=== PATIENT | male | born 1995 | race Two or more races ===

== ENCOUNTER 2022-07-17 01:00 | Inpatient (IN) | payer OTHER ==
[~2022-07-17] VITALS: Ht 182.9 cm; Wt 65.8 kg
[2022-07-17] VITALS (17 sets, daily range): BP systolic 105–129; BP diastolic 58–90
--- NOTE | 2022-07-17 01:21 | NUR ---
TO LOBBY A/W BED AMBULATORY
--- NOTE | 2022-07-17 02:32 | NUR ---
PT TO BED #2
--- NOTE | 2022-07-17 02:50 | NUR ---
PT C/O BODY ACHES AND BURNING SENSATION WHEN URINATING THAT STARTED 2 DAYS AGO. PT ALSO STATES HE VOMITTED IN THE ER RESTROOM. PT HAS MEDICAL HISTORY DM TYPE 1. DENIES CHEST PAIN. NO OTHER COMPLAINTS AT THIS TIME.
[2022-07-17] MEDS ORDERED: NACL 0.9% 1,000 ML IV ONE (03:15)
[2022-07-17 03:30] LABS: APPEARANCE,URINE CLEAR (CLEAR); BILIRUBIN,URINE NEGATIVE (NEGATIVE); BLOOD, URINE TRACE-I (NEGATIVE); COLOR,URINE YELLOW (YELLOW); LEUKOCYTE ESTERASE ,URINE NEGATIVE (NEGATIVE); NITRITE, URINE NEGATIVE (NEGATIVE); PH,URINE 5.5 (5.0-9.0); UGLUCOSE 2+ (NEGATIVE)
[2022-07-17 03:32] LABS: BASOPHILS % (AUTO) 0.5 % (0.0-2.0); HEMATOCRIT 49.2 % (36-52); LYMPHOCYTES # (AUTO) 0.8 K/uL (2.0-11.5); LYMPHOCYTES % (AUTO) 8.2 % (20.5-51.1); MEAN CORPUSCULAR HEMOGLOBIN 30 pg (27-31); MEAN CORPUSCULAR HGB CONC 33 g/dL (33-37); MEAN CORPUSCULAR VOLUME 91.1 fL (80-94); MONOCYTES # (AUTO) 0.9 K/uL (0.8-1.0); MONOCYTES % (AUTO) 8.9 % (1.7-9.3); NEUTROPHILS # (AUTO) 8.3 K/uL (1.8-7.7); NEUTROPHILS % (AUTO) 82.4 % (42.2-75.2); PLATELET COUNT (AUTO) 214 K/uL (140-450); RED BLOOD CELL COUNT(AUTO) 5.39 MIL/uL (4.20-6.10)
[2022-07-17 03:37] LABS: RBC,URINE 0-5 /HPF (0-5)
[2022-07-17 03:38] LABS: WBC,URINE 0-5 /HPF (0-5)
[2022-07-17 03:45] LABS: ALBUMIN 4.2 g/dL (3.4-5.0); ANION GAP 32.3 (8-16); ASPARTATE AMINOTRANSFERASE 23 U/L (15-37); CARBON DIOXIDE 14.9 mmol/L (21-32); CHLORIDE 95 mmol/L (98-107); CREATININE 1.7 mg/dL (0.6-1.3); GFR ARICAN-AMERICAN 63 mL/min (>90); GLUCOSE 341 mg/dL (74-106); POTASSIUM 5.2 mmol/L (3.5-5.1); SODIUM SERUM 137 mmol/L (136-145); TOTAL BILIRUBIN 0.4 mg/dL (0.0-1.0); UREA NITROGEN, BLOOD 31 mg/dL (7-18)
[2022-07-17 03:49] LABS: ACETONE, SERUM MODERATE (NEGATIVE)
[2022-07-17] MEDS ORDERED: KETOROLAC 30 MG/ML VIAL IVP ONE (03:50)
[2022-07-17] MEDS ORDERED: INSULIN REGULAR, HUMAN 100 UNIT in NACL 0.9% 100 ML IV ONE ×2 (03:55)
[2022-07-17] MEDS ORDERED: cefTRIAXone 1,000 MG VIAL ONE (04:03)
[2022-07-17] MEDS ORDERED: ACETAMINOPHEN 325 MG TAB PO PRN (05:40)
[2022-07-17] MEDS ORDERED: NACL 0.9% 1,000 ML IV SCH (05:40)
[2022-07-17] MEDS ORDERED: ONDANSETRON 4 MG/2 ML VIAL IVP PRN (05:40)
[2022-07-17] MEDS ORDERED: MORPHINE SULFATE 2 MG/ML SYR IVP PRN (05:40)
--- NOTE | 2022-07-17 05:40 | NUR ---
ROCEPHIN IVF NOT GIVEN. MEDICINE WAS JUST ADMINISTERED 2 HRS AGO.
[2022-07-17] MEDS ORDERED: LANTUS SUBQ (06:13)
[2022-07-17] MEDS ORDERED: METF-350 PO (06:13)
--- NOTE | 2022-07-17 06:38 | NUR ---
lab called. pt positive for covid.
[2022-07-17] MEDS ORDERED: INSULIN REGULAR, HUMAN 100 UNIT in NACL 0.9% 100 ML IV SCH ×4 (08:45→08:50)
[2022-07-17] MEDS: DEXT 5% / NACL 0.45% 1,000 ML IV SCH ×3 (08:50→18:55)
[2022-07-17] MEDS ORDERED: DEXTROSE 50% 50 ML SYR IVP PRN (08:50)
[2022-07-17] MEDS: BLOOD GLUCOSE MONITORING 1 DEV DEV FS SCH ×15 (09:03→23:45)
[2022-07-17] MEDS: NACL 0.9% 1,000 ML IV SCH ×3 (09:03→18:55)
[2022-07-17 09:20] LABS: ANION GAP 25.7 (8-16); CARBON DIOXIDE 14.8 mmol/L (21-32); CREATININE 1.6 mg/dL (0.6-1.3); POTASSIUM 4.5 mmol/L (3.5-5.1)
[2022-07-17 09:24] LABS: MAGNESIUM 2.3 mg/dL (1.8-2.4); PHOSPHORUS 4.6 mg/dL (2.5-4.9)
--- NOTE | 2022-07-17 10:20 | NUR ---
PATIENT HAS BEEN SCREENED AND CATEGORIZED HIGH NUTRITION RISK. PATIENT WILL BE SEEN WITHIN 1-2 DAYS OF ADMISSION. 07/17/22-07/19/[address] REVIEWED BY BRIGHT VEL[address] RD
--- NOTE | 2022-07-17 11:27 | NUR ---
POTENTIAL COVID RELATED SKIN FAILURE DUE TO TISSUE LESS TOLERATE TO PRESSURE, SHEARING AND POSSIBLE ASSOCIATED WITH MICROVASCULAR INJURY AND HYPOXIA -POSITIONING: TURN AND REPOSITION PATIENT Q 2H OR SOONER USE PILLOWS TO KEEP BONY PROMINENCES FROM DIRECT CONTACT WITH SURFACES USE REPOSITIONING WEDGES TO PROVIDE 30-DEGREE ANGLE FOR SIDE LYING POSITIONS OFFLOADING OR FOAM DRESSING TO ALL TUBING TO PREVENT MEDICAL DEVICES RELATED PRESSURE INJURY -RE-EVALUATING AND MANAGING INCONTINENCE MONITOR SKIN CONDITION DURING POSITION CHANGE DO NOT MASSAGE REDNESS, BONY PROMINENCES, DO NOT USE DONUT-TYPE DEVICES FREQUENT SHANIA-CARE AND PROVIDE BARRIER CREAMS PRN IF SOILING MOISTURE CONTROL BY OFFER BED BRITTON/URINAL /ABSORBENT PAD TO WICK AND HOLD MOISTURE. KEEP SKIN DRY AND PROTECT FROM FRICTION -MANAGE FRICTION/SHEAR/MOBILITY KEEP HOB AT THE LOWEST LEVEL OF ELEVATION NO MORE THAN 30 DEGREE UNLESS OTHERWISE CONTRAINDICATED USE LIFT SHEET OR TRANSFER DEVICE TO MOVE PATIENT AND PREVENT LATERAL SHEER. PROTECT HEELS, ELBOWS BONY PROMINENCES WITH SKIN BERRIES OR FOAM DRESSING IF EXPOSED TO FRICTION OFFLOAD BILATERAL HEELS BY PLACING PILLOWS UNDER CALVES AT ALL TIMES, UNLESS OTHERWISE CONTRAINDICATED -PRESSURE REDISTRIBUTION SURFACE THERAPY CONSTANCE ISOFLEX MATTRESS -NUTRITION: PLEASE FOLLOW RD RECOMMENDATIONS AND OFFER NUTRITION SUPPLEMENTS IF ORDERED. PLEASE CONTACT WOUND CARE NURSE FOR ANY QUESTION AND CHANGE OF WOUND CONDITION.
[2022-07-17 12:33] LABS: ANION GAP 14.2 (8-16); CARBON DIOXIDE 23.3 mmol/L (21-32); CREATININE 1.4 mg/dL (0.6-1.3); POTASSIUM 4.5 mmol/L (3.5-5.1)
[2022-07-17 16:24] LABS: CARBON DIOXIDE 24.4 mmol/L (21-32); CREATININE 1.3 mg/dL (0.6-1.3); POTASSIUM 4.4 mmol/L (3.5-5.1)
[2022-07-17 20:23] LABS: CARBON DIOXIDE 26.8 mmol/L (21-32); CREATININE 1.2 mg/dL (0.6-1.3); POTASSIUM 3.8 mmol/L (3.5-5.1)
--- NOTE | 2022-07-17 20:29 | NUR ---
PT A&O X4. INDEPENDENT AND AMBULATORY. ABLE TO MAKE NEEDS KNOWN. AFEBRILE. ON ROOM AIR. ACTIVE BOWEL SOUNDS BUT C/O BEING NAUSEATED WHEN TRYING TO EAT OR DRINK. FULL LIQUID DIET. ST TO BEDSIDE MONITOR. TWO 20 GAUGES TO LEFT FOREARM. DENIES CHEST PAIN OR SOB. NO OTHER COMPLAINTS AT THIS TIME.
--- NOTE | 2022-07-17 21:45 | NUR ---
CONTACTED BLENDING OPERATOR MD DR. LOPEZ. INFORMED THAT LATEST ANION GAP IS 10. ORDERED TO D/C DKA PROTOCOL AND TO START PT ON INSULIN DRIP.
--- NOTE | 2022-07-17 23:08 | NUR ---
PT C/O BODY ACHES AND NAUSEA. ACTIVE ORDER MORPHINE AND NAUSEA AVAILABLE.
[2022-07-18] VITALS (10 sets, daily range): BP systolic 99–135; BP diastolic 50–79
[2022-07-18 00:54] LABS: CARBON DIOXIDE 27.4 mmol/L (21-32); CREATININE 1.1 mg/dL (0.6-1.3); POTASSIUM 3.4 mmol/L (3.5-5.1)
--- NOTE | 2022-07-18 01:00 | NUR ---
PRN MORPHINE AND ZOFRAN EFFECTIVE PT IS SLEEPING AT THIS TIME. PT WITHIN PERSONAL RANGE.
--- NOTE | 2022-07-18 02:30 | NUR ---
PT RESTING. BREATHING EVEN AND UNLABORED.
[2022-07-18] MEDS: BLOOD GLUCOSE MONITORING 1 DEV DEV FS SCH ×5 (04:00→20:47)
[2022-07-18 06:04] LABS: BASOPHILS % (AUTO) 0.2 % (0.0-2.0); EOSINOPHILS # (AUTO) 0.1 K/uL (0-0.4); EOSINOPHILS % (AUTO) 0.9 % (0.0-4.0); HEMATOCRIT 41.9 % (36-52); HEMOGLOBIN 14.3 g/dL (12.0-18.0); LYMPHOCYTES # (AUTO) 1.6 K/uL (2.0-11.5); LYMPHOCYTES % (AUTO) 29.2 % (20.5-51.1); MEAN CORPUSCULAR HEMOGLOBIN 30 pg (27-31); MEAN CORPUSCULAR HGB CONC 34 g/dL (33-37); MEAN CORPUSCULAR VOLUME 86.9 fL (80-94); MONOCYTES # (AUTO) 0.5 K/uL (0.8-1.0); MONOCYTES % (AUTO) 8.8 % (1.7-9.3); NEUTROPHILS # (AUTO) 3.4 K/uL (1.8-7.7); NEUTROPHILS % (AUTO) 60.9 % (42.2-75.2); PLATELET COUNT (AUTO) 167 K/uL (140-450); RED BLOOD CELL COUNT(AUTO) 4.82 MIL/uL (4.20-6.10); RED CELL DISTRIBUTION WIDTH 12.4 % (11.6-13.7); WHITE BLOOD COUNT (AUTO) 5.6 K/uL (4.8-10.8)
[2022-07-18 06:30] LABS: ANION GAP 11.9 (8-16); CARBON DIOXIDE 28.4 mmol/L (21-32); POTASSIUM 4.3 mmol/L (3.5-5.1)
--- NOTE | 2022-07-18 07:15 | NUR ---
REPORT ENDORSED TO AM SHIFT RN LENY.
--- NOTE | 2022-07-18 07:30 | NUR ---
RECIEVED REPORT FROM SAMSON ALEJO PT IS SLEEPING AT THE TIME AWAKE WHEN CALL NAME , HE IS ON ISOLATION FOR COVID..
--- NOTE | 2022-07-18 08:00 | NUR ---
UP TO BR. AND FEED HIMSELF INDEPENDENTLY ON ROOM AIR IV NS at 125 ML/HR. DENIED PAIN NO SIGH OF SOB.
--- NOTE | 2022-07-18 08:30 | NUR ---
SEEN BY DR. BUNCH AT BEDSIDE ORDER RECEIVED TO DOWN GRADE TO MS FOR CONTINUEITY CARE.
[2022-07-18 08:32] LABS: ANION GAP 12.9 (8-16); CARBON DIOXIDE 29.4 mmol/L (21-32); CREATININE 1.1 mg/dL (0.6-1.3); POTASSIUM 4.3 mmol/L (3.5-5.1)
[2022-07-18] MEDS: INSULIN LISPRO SLIDING SCALE 100 UNITS/ML VIAL SUBQ PRN ×4 (09:19→20:46)
--- NOTE | 2022-07-18 10:30 | NUR ---
TRANSFER TO TELE RM 114 REPORT GIVE TO LENY RN AT BEDSIDE.
--- NOTE | 2022-07-18 10:30 | NUR ---
RECEIVED REPORT FROM ICU NURSE. PT A/O X3. ABLE TO MAKE NEEDS KNOWN. STATES OF BODY ACHES, DENIES FEVER. DENIES PAIN MED AT THIS TIME. ORAL FLUIDS, NEW GOWN AND HYGIENIC CARE GIVEN TO PT. ORIENTED PT TO ROOM. NO SOB OR RESPIRATORY DISTRESS NOTED. RR EVEN & UNLABORED. NEEDS ALL MET AT THIS TIME. DROPLET PRECAUTION IN PLACE. ALL SAFETY MEASURES IN PLACE.
--- NOTE | 2022-07-18 11:30 | NUR ---
SPOKE WITH DR. ROBLES REGARDING IF HE WANTS TO CONTINUE PT'S MEDICATION (LANTUS) AND NOTIFIED HIM OF PT'S MAGNESIUM LEVELS. STATES HE WILL INPUT ORDERS.
[2022-07-18] MEDS: INSULIN LANTUS 100 UNITS/ML 10 ML VIAL SUBQ SCH (12:09)
[2022-07-18 12:18] LABS: ANION GAP 10.7 (8-16); CARBON DIOXIDE 29.1 mmol/L (21-32); CREATININE 1.2 mg/dL (0.6-1.3); POTASSIUM 3.8 mmol/L (3.5-5.1)
--- NOTE | 2022-07-18 16:00 | NUR ---
PT IN NO ACUTE DISTRESS. PT STATES HE WANTS TO KEEP THE ROOM WARM AND STATES, "I'M SENSITIVE TO COLD". PT ALSO STATES, "I'M SENSITIVE TO LIGHTS". ALL LIGHTS OFF AND TEMPERATURE IN ROOM TURNED UP. NEEDS ALL MET AT THIS TIME. ALL SAFETY MEASURES IN PLACE. DROPLET PRECAUTION IN PLACE.
--- NOTE | 2022-07-18 19:18 | NUR ---
REPORT GIVEN TO NIGHTSOKFT NURSE PALLAVI FOR CONTINUITY OF CARE.
--- NOTE | 2022-07-18 19:25 | NUR ---
RECEIVED PT FROM AM NURSE FOR CONTINUITY OF CARE. PT IS STABLE
[2022-07-19 01:01] LABS: ANION GAP 8.9 (8-16); CARBON DIOXIDE 33.6 mmol/L (21-32); CREATININE 0.9 mg/dL (0.6-1.3); POTASSIUM 3.5 mmol/L (3.5-5.1)
[2022-07-19] MEDS: INSULIN LISPRO SLIDING SCALE 100 UNITS/ML VIAL SUBQ PRN ×4 (01:06→17:05)
--- NOTE | 2022-07-19 01:30 | NUR ---
TEXTED MD TO CLARIFY IF BLD GLUCOSE CHECK Q 4H AND BMP Q4H BE CONTINUED AND IF THERE IS ANY IV FLUIDS TO GIVE. AWAITING RESPONSE
--- NOTE | 2022-07-19 01:45 | NUR ---
MD ORDERED CMP AT 6 AM, BLD GLUCOSE CHECK ACHS AND CANCEL Q4H BG CHECK AND CMP Q8H.
[2022-07-19 04:00] VITALS: BP 127/66
[2022-07-19] MEDS ORDERED: cefTRIAXone 1,000 MG VIAL ONE (04:50)
[2022-07-19] MEDS: BLOOD GLUCOSE MONITORING 1 DEV DEV FS SCH ×5 (06:54→21:00)
--- NOTE | 2022-07-19 07:25 | NUR ---
ENDORSED PT TO AM NURSE, PT IS STABLE
[2022-07-19 07:54] LABS: ANION GAP 11.4 (8-16); CARBON DIOXIDE 34.2 mmol/L (21-32); CREATININE 0.8 mg/dL (0.6-1.3); POTASSIUM 3.6 mmol/L (3.5-5.1); TOTAL BILIRUBIN 0.3 mg/dL (0.0-1.0)
[2022-07-19 08:00] VITALS: BP 104/59
[2022-07-19] MEDS: INSULIN LANTUS 100 UNITS/ML 10 ML VIAL SUBQ SCH (09:00)
[2022-07-19] MEDS ORDERED: INSULIN LISPRO 100 UNITS/ML VIAL SUBQ ONE ×2 (12:25→22:30)
[2022-07-19 16:00] VITALS: BP 140/89
[2022-07-19] MEDS: INSULIN LISPRO 100 UNITS/ML VIAL SUBQ SCH (17:05)
[2022-07-19] MEDS ORDERED: HUM SUBQ (18:01)
[2022-07-19] MEDS ORDERED: HUMSLIDE SUBQ (18:01)
[2022-07-19] MEDS ORDERED: LANTUS SUBQ (18:01)
--- NOTE | 2022-07-19 18:17 | NUR ---
07/19/2022 RD INITIAL ASSESSMENT COMPLETED.PLEASE REFER TO NUTRITION ASSESSMENT UNDER CARE ACTIVITY FOR ESTIMATED NUTRITIONAL NEEDS. 1.CONTINUE WITH [facility] DIET 2.MONITOR BLOOD GLUCOSE 3.RD TO FOLLOW-UP IN 3-5 DAYS PATIENT IS MODERATE RISK. PALLAVI COLE RD
[2022-07-19 18:28] VITALS: BP 138/96
--- NOTE | 2022-07-19 19:48 | NUR ---
ENDORSE PATIENT TO PM SHIFT NURSE IN STABLE CONDITION WITH COMPLETE DISCHARGE PACKAGE PAPER WORK FOR PM SHIFT TO F/U.
[2022-07-19 20:00] VITALS: BP 118/80
--- NOTE | 2022-07-19 20:00 | NUR ---
HIT THE CALL LIGHT - PT . REQUESTING CAT RIGGS - INFORM KEREN KINNEY .
--- NOTE | 2022-07-19 20:20 | NUR ---
PATIENT WAS GIVEN DISCHARGE ORDERS AND PATIENT WAS SIGNED BUT THE FAMILY IS NOT AVAILABLE UNTIL 10AM TOMORROW MORNING. PATIENT IS COVID POSITIVE AND UNABLE TO DISCHARGE VIA PUBLIC TRANSPORTATION. LOCATION MAN , DR. QUINONES AND HAT AND CAP SEWER J CARLOS WERE NOTIFIED. NURSING WILL CONTINUE WITH CARE ANS ORDERS UNTIL DISCHARGE. [email or web address]
--- NOTE | 2022-07-19 22:23 | NUR ---
PATIENT BLOOD SUGAR WAS NOTED AT 424. MD WAS NOTIFIED AND AWAITING FURTHER. [email or web address]
--- NOTE | 2022-07-19 22:24 | NUR ---
PLEASE SEE ORDERS FOR ADVISED ORDERS. [email or web address]
--- NOTE | 2022-07-20 02:49 | NUR ---
RECEIVED PATIENT FOR A DISCHARGE TO GO HOME. PATIENT STABLE DURING SHIFT REPORT BY KRISTINA ALEJO. PATIENT WAS ABLE TO EXPLAIN WHY HE WAS IN THE HOSPITAL. PATIENT DOES NOT HAVE ANYONE TO PICK HIM UP UNTIL TOMORROW LATE MORNING. NURSING WILL INFORM THE ED, TEACHER DRAMA, AND MD. DENIES ANY PAIN AT THIS TIME. NO NOTED S/S OF RESPIRATORY DISTRESS. PATIENT WAS LAYING IN BED IN SEMI LOW VIVAS. SIDE RAIL X 2 FOR SAFETY AND SELF ADJUSTMENTS. CALL LIGHT WAS WITHIN REACH FOR ASSISTANCE. PATIENT HAS HAD NOT USED THE RESTROOM AND NOTED A STONE. [email or web address] Addendum: 07/20/22 at 0253 by Luna Briscoe LVN THIS WAS A LATE ENDTRY FOR 07/19/2022 AT 1930. [email or web address]
[2022-07-20 04:00] VITALS: BP 101/69
--- NOTE | 2022-07-20 04:47 | NUR ---
PATIENT NOTED IN BED READY FOR DISCHARGE. PATIENT HAD NO COMPLAINTS OF PAIN/DISCOMFORT AT THIS TIME. NO NOTED S/S OF HYPO/HYPERGLYCEMIA. NO NOTED RESPIRATORY DISTRESS. CALL LIGHT WITHIN REACH. SIDE RAILS UP X 2. [email or web address]
--- NOTE | 2022-07-20 05:18 | NUR ---
PATIENT WAS ABLE TO SLEEP DURING THE NIGHT WITHOUT DISTURBANCE. SIDE RAILS UP X 2. CALL LIGHT WITHIN RANGE. [email or web address]
[2022-07-20] MEDS: INSULIN LISPRO SLIDING SCALE 100 UNITS/ML VIAL SUBQ PRN ×2 (06:48→07:57)
--- NOTE | 2022-07-20 06:57 | NUR ---
SENT MSG. TO DR. BARTLETT IF HE WANTS TO CONT. THE ROCEPHIN TIV - I INFORMED KEREN BATEMAN TO INCLUDE IT TO HER ENDORSEMENT TO AM NURSE , KEREN BATEMAN VERBALIZES UNDERSTANDING .
--- NOTE | 2022-07-20 07:05 | NUR ---
ENDORSED PATIENT TO KRISTINA RN FOR CONTINUITY OF CARE TO DISCHARGE TODAY APPROXIMATELY AT 10AM. PATIENT WAS STABLE DURING SHIFT REPORT. [email or web address]
[2022-07-20] MEDS: BLOOD GLUCOSE MONITORING 1 DEV DEV FS SCH (07:54)
[2022-07-20] MEDS: INSULIN LISPRO 100 UNITS/ML VIAL SUBQ SCH (07:57)
[2022-07-20 08:00] VITALS: BP 100/59
--- NOTE | 2022-07-20 08:39 | NUR ---
LATE ENTRY- IV NORMAL SALINE DISCONTINUED AT 0715. INSULIN DRIP DISCONTINUED AT 0715. CEFTRIAXONE DISCONTINUED AT 0715.
[2022-07-20] MEDS ORDERED: INSULIN LANTUS 100 UNITS/ML 10 ML VIAL SUBQ SCH (09:00)
--- NOTE | 2022-07-20 10:29 | NUR ---
DISCHARGE PATIENT PER PCP ORDER IN STABLE CONDITION; DISCHARGE INSTRUCTION GIVEN, DISCHARGE CONSENT SIGNED, IV ACCESS & WRIST BAND REMOVED. ALL SCHEDULE MEDICATION GIVEN BEFORE PATIENT WALK OUT THE FACILITY AT 1020
== END 2022-07-20 10:32 | disposition home or self-care (01) | DRG 420 ==
LOC: MED 01:00 → MTU 05:42 → MIC 06:39 → MTU 07-18 10:57
PROVIDERS: ADMIT Hospitalist; ATTEND Hospitalist
DX: E10.10 Type 1 diabetes mellitus with ketoacidosis without coma (principal); U07.1 COVID-19; N17.9 Acute kidney failure, unspecified; E86.0 Dehydration; N39.0 Urinary tract infection, site not specified
CPT/HCPCS: 36415; 36600; 80048; 80053; 81001; 82009; 82803; 82948; 83735; 84100; 85025; 87040; 96365; 96368; 96375; 99291; J0696; J1815; J1885; J2270; J2405; J7060